=== PATIENT | female | born 2005 | race Two or more races ===

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

== ENCOUNTER 2023-04-15 17:04 | Emergency (ER) | payer OTHER ==
[~2023-04-15] VITALS: Ht 149.9 cm; Wt 53.2 kg
[~2023-04-15 17:04] MED LIST: ACET-66 PO; ANXIETY MEDS PO
[2023-04-15 17:08] VITALS: BP 114/69; PULSE 95; RESP 18; TEMP 98.1
[2023-04-15] MEDS ORDERED: CETI-193 PO (17:10)
[2023-04-15 19:47] LABS: APPEARANCE,URINE HAZY (CLEAR); BILIRUBIN,URINE NEGATIVE (NEGATIVE); COLOR,URINE YELLOW (YELLOW); GLUCOSE, URINE (UA) NEGATIVE (NEGATIVE); KETONES,URINE NEGATIVE (NEGATIVE); LEUKOCYTE ESTERASE ,URINE LARGE (NEGATIVE); NITRATE,URINE NEGATIVE (NEGATIVE); OCCULT BLOOD,URINE LARGE (NEGATIVE); PH,URINE 5.5 (5.0-8.0); PROTEIN,URINE 30-70 mg/dL (NEGATIVE); SPECIFIC GRAVITIY, URINE 1.027 (1.003-1.030); UROBILINOGEN,URINE <=1.0 mg/dL (<=1.0)
[2023-04-15 20:01] LABS: BACTERIA,URINE Many /HPF (None Seen); SQUAMOUS EPITHELIAL CELL,UR Few /LPF (None Seen); WBC,URINE 51-100 /HPF (0-5)
[2023-04-15] MEDS ORDERED: BACTDSB PO (21:28)
[2023-04-15] MEDS ORDERED: HYDR30CR3 TP (21:29)
[2023-04-15] MEDS ORDERED: SULFAMETHOX/TRIMETH DS 800-160 MG/TABLET PO ONE ×2 (21:30)
== END 2023-04-15 22:18 | disposition home or self-care (01) ==
LOC: EMS 17:05
DX: R30.0 Dysuria (principal); R10.2 Pelvic and perineal pain; R39.15 Urgency of urination; F41.9 Anxiety disorder, unspecified; F32.A Depression, unspecified
CPT/HCPCS: 81001; 87086; 87186; 99283